=== PATIENT | female | born 1965 | race Caucasian/White ===

== ENCOUNTER 2019-09-13 00:35 | Observation (INO) ==
[2019-09-13 01:15] LABS: Basophils # 0.1 10*3/uL (0.0-0.2); Basophils % 0.6 % (0.0-0.8); Eosinophils % 0.3 % (0.00-10.9); Hematocrit 33.3 VOL% (35.7-47.0); Immature Granulocytes % 0.4 %; Immature Granulocytes Absolute 0.05 #; Lymphocytes # 1.3 10*3/uL (1.4-4.0); Mean Corpuscular Volume 86.3 FL (87-102); Mean Platelet Volume 11.1 FL (9.6-12.0); Monocytes % 8.7 % (1.7-12.7); Platelet Count 156 T/CUMM (130-400); Red Blood Count 3.86 MC/CUMM (3.8-5.5); Red Cell Distribution Width 16.4 % (9.3-17.3); White Blood Count 11.8 T/CUMM (4-12)
[2019-09-13 01:30] LABS: INR 1.3; PT Patient Result 13.5 SECS (9.8-11.9)
[2019-09-13 01:59] LABS: Albumin 2.7 G/DL (3.4-5.0); Bilirubin,Total 0.5 MG/DL (0.2-1.0); Calcium 9.3 MG/DL (8.5-10.1); Osmolality,Calculated 273.7 MOS/KG (273-304); Total Protein 9.2 G/DL (6.4-8.3)
[2019-09-13] MEDS ORDERED: GLUCAGON 1 MG VIAL IM PRN (02:40)
[2019-09-13] MEDS ORDERED: ONDANSETRON 4 MG/2 ML VIAL IV PRN (02:40)
[2019-09-13] MEDS ORDERED: DEXTROSE 50% 25 GM/50 ML VIAL IV PRN (02:40)
[2019-09-13] MEDS: MORPHINE 4 MG/1 ML VIAL IV PRN ×4 (04:51→14:56)
[2019-09-13] MEDS: INSULIN REGULAR 100 UNIT/ML SUBCUT SCH ×2 (07:58→11:54)
[2019-09-13 08:14] LABS: Albumin 2.6 G/DL (3.4-5.0); Bilirubin,Total 0.5 MG/DL (0.2-1.0); Calcium 8.9 MG/DL (8.5-10.1); Osmolality,Calculated 276.5 MOS/KG (273-304); Total Protein 8.6 G/DL (6.4-8.3)
[2019-09-13] MEDS ORDERED: PANTOPRAZOLE 40 MG TABLET PO SCH (09:00)
[2019-09-13] MEDS ORDERED: ALBUMIN 25% 12.5 GM/50 ML VIAL IV ONE ×2 (09:19→09:45)
[2019-09-13] MEDS ORDERED: ALBUMIN 25% 12.5 GM in PREMIX 1 EACH IV ONE ×2 (09:24→09:54)
[2019-09-13 10:30] LABS: Neutrophils,Peritoneal Fluid 1 %
[2019-09-13 10:33] LABS: RBC,Peritoneal Fluid 94 T/CUMM
[2019-09-13 16:15] VITALS: BP 100/53
== END 2019-09-13 16:40 | disposition home health service (06) ==
LOC: N.EDINP 00:35 → N.ED 00:35 → N.TELEN 03:01
PROVIDERS: ADMIT Emergency Medicine; ATTEND Emergency Medicine